=== PATIENT | female | born 1970 | race Asian ===

== ENCOUNTER → 2016-09-03 | Day surgery (SDC) | payer BC, OTHER | END | disposition home or self-care (01) | LOC: FRADUS-SUR 13:48 | PROVIDERS: ATTEND Surgery Surgical Oncology | PROC: 0HBT3ZX Excision of Right Breast, Percutaneous Approach, Diagnostic (ICD-10-PCS; principal; 2016-09-03) | DX: N60.01 Solitary cyst of right breast (principal) | CPT/HCPCS: 76942-TC ==